=== PATIENT | male | born 1975 | race American Indian/Alaskan Native ===

== ENCOUNTER 2021-11-05 15:42 | Emergency (ER) | payer OTHER ==
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
[2021-11-05 17:24] VITALS: BP 163/108
[2021-11-05] MEDS: dexAMETHasone 4 MG/ML VIAL IM ONE (17:36)
[2021-11-05] MEDS: IBUPROFEN 800 MG TAB PO ONE (17:37)
[2021-11-05] MEDS: CYCLOBENZAPRINE 10 MG TAB PO ONE (17:37)
== END 2021-11-05 18:14 | disposition home or self-care (01) ==
LOC: ED 15:42
DX: M79.18 Myalgia, other site (principal); I10 Essential (primary) hypertension; F10.20 Alcohol dependence, uncomplicated; V89.2XXA Person injured in unspecified motor-vehicle accident, traffic, initial encounter; Y93.89 Activity, other specified; Y92.89 Other specified places as the place of occurrence of the external cause; Y99.8 Other external cause status
CPT/HCPCS: 96372; 99282; J1100